=== PATIENT | male | born 1960 | race Caucasian/White ===

== ENCOUNTER 2016-06-05 11:18 | Emergency (ER) | payer BC, OTHER ==
[2016-06-05 11:29] VITALS: BP 151/90
--- NOTE | 2016-06-05 11:35 | EDM.PDOC ---
<Azul Love - Last Filed: 06/05/16 12:05> ED HPI LOWER BACK PAIN/INJURY - General Chief Complaint: Back Pain or Injury Stated Complaint: BACK Time Seen by Provider: 06/05/16 11:34 Source of Information: Reports: Patient History Limitations: Reports: No limitations - History of Present Illness INITIAL COMMENTS - FREE TEXT/NARRATIVE: Patient states on Wednesday he was getting out of his car and heard a "pop" in his back. He states since then he as had excruciating pain in the left lower back area radiating through the buttocks and down the left leg. He rates the pain a 10/10 at it's worst, and a 9/10 when he takes pressure off. Patient denies any recent illnesses, N/V, fever, chills, chest pain, sob. He is not a smoker. 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 [No Known Home Meds] 09/01/14 [History] Past Medical History - Past Health History Medical/Surgical History: Denies Medical/Surgical History Social & Family History - Tobacco Use Smoking Status *Q: Never Smoker Second Hand Smoke Exposure: No ED ROS GENERAL - Review of Systems Review Of Systems: ROS reveals no pertinent complaints other than HPI. ED EXAM,LOWER BACK PAIN/INJURY - Physical Exam Exam: See Below Exam Limited By: No limitations General Appearance: alert, WD/WN, no apparent distress Eye Exam: bilateral eye: normal inspection Ears: normal external exam, normal canal, hearing grossly normal Nose: normal inspection, normal mucosa, no blood Throat/Mouth: Normal inspection, Normal voice, No airway compromise Head: atraumatic, normocephalic Neck: normal inspection, full range of motion Respiratory/Chest: no respiratory distress, lungs clear, normal breath sounds, no accessory muscle use, chest non-tender Cardiovascular: normal peripheral pulses, regular rate, rhythm, no edema, no gallop, no JVD, no murmur, no rub GI/Abdominal: normal bowel sounds, soft, non tender, no organomegaly, no distention, no abnormal bruit, no mass (Male) Exam: Deferred Rectal (Males) Exam: Deferred Back Exam: normal inspection, other (tenderness on palpation to left lower lumbar region) Extremities: normal inspection Neurological: alert, normal mood/affect, no motor/sensory deficits, oriented x 3 Psychiatric: normal affect, normal mood Skin Exam: Warm, Dry, Intact, Normal color, No rash Lymphatic: no adenopathy Course - Vital Signs Last Recorded V/S: Last Vital Signs Temp 36.8 C 06/05/16 11:28 Pulse 74 06/05/16 11:28 Resp 16 06/05/16 11:28 BP 151/90 H 06/05/16 11:28 Pulse Ox 100 06/05/16 11:28 - Orders/Labs/Meds Orders: Active Orders 24 hr Category Date Time Status Lumbar Spine 2 or 3V [CR] Urgent Exams 06/05/16 11:33 Taken Meds: Medications Discontinued Medications Generic Name Dose Route Start Last Admin Trade Name Harryq PRN Reason Stop Dose Admin Ketorolac Tromethamine 60 mg 06/05/16 11:37 06/05/16 11:43 Toradol IM 06/05/16 11:38 60 mg ONETIME ONE Administration - Radiology Interpretation Free Text/Narrative:: Lumbar xray: Chronic degenerative changes. No acute fracture. See Rad report. Departure - Departure Time of Disposition: 12:06 Disposition: Home, Self-Care 01 Clinical Impression: Sciatica Qualifiers: Laterality: left Qualified Code(s): M54.32 - Sciatica, left side Lumbar sprain Qualifiers: Encounter type: initial encounter Qualified Code(s): S33.5XXA - Sprain of ligaments of lumbar spine, initial encounter Instructions: Back Injury Prevention, [id number], Muscle Strain, [id number] , Sciatica, [id number] Forms: ED Department Discharge Additional Instructions: Flexeril 10m orally three times daily as needed for 5 days for muscle spasms NO DRIVING WHILE TAKING THIS MED Decadron 4m orally every 6 hours for 6 doses. Return to your primary care provider next week if not improved in 1 week. <Heladio Patterson - Last Filed: 06/05/16 12:07> Course - Radiology Interpretation CT Results Date: 06/05/16 - Re-Assessments/Exams Free Text/Narrative Re-Assessment/Exam: 06/05/16 11:58 FOR THIS ENCOUNTER THE PATIENT WAS SEEN IN CONJUNCTION WITH [facility] STUDENT AZUL LOVE. ALL PATIENT CARE AND/OR PROCEDURE(S), DIAGNOSTIC ORDERS, MEDICATION(S) AND TREATMENT ORDERS, DISPOSITION ORDERS/PLANNING, AND DISCHARGE/FOLLOW UP INSTRUCTIONS WERE UNDER MY DIRECT SUPERVISION. gisselle
[2016-06-05] MEDS ORDERED: Ketorolac 30 MG/ML SDV IM ONE (11:37)
--- NOTE | 2016-06-05 13:13 | CR ---
Clinical history: 55-year-old male injury spine. 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 Homogeneous normal density and normal height/alignment of the 5 lumbar vertebra. No sign of patholog ic skeletal lesion, acute fracture or spondylolisthesis. Relative narrowing of the lowest free L5-S1 interspace suggesting possible disc disease. Marginal arthritic spondylosis present at nearly all levels lumbar spine. CONCLUSION: Arthritis and probable L5-S1 disc disease. No acute fracture or dislocation.
== END 2016-06-05 12:20 | disposition home or self-care (01) ==
LOC: DL.ED 11:18
DX: S33.5XXA Sprain of ligaments of lumbar spine, initial encounter (principal); M54.32 Sciatica, left side; Z88.0 Allergy status to penicillin; X58.XXXA Exposure to other specified factors, initial encounter; Y92.009 Unspecified place in unspecified non-institutional (private) residence as the place of occurrence of the external cause
CPT/HCPCS: 72100; 96372; 99283; J1885

== ENCOUNTER 2019-09-09 23:35 | Emergency (ER) | payer OTHER ==
[2019-09-09 23:42] VITALS: BP 148/89; PULSE 100
[2019-09-10 00:09] LABS: ANION GAP 17.5 mEq/L (7-13); CHLORIDE,CL 102 mmol/L (98-107); SODIUM,NA 140 mmol/L (136-145)
--- NOTE | 2019-09-10 00:13 | CT ---
PROCEDURE INFORMATION: Exam: CT Head Without Contrast Exam date and time: 09/09/2019 11:57 PM Age: 59 years old Clinical indication: Other: Altered mentation, ETOH; Additional info: Alteredmental, intox fall TECHNIQUE: Imaging protocol: Computed tomography of the head without contrast. Radiation optimization: All CT scans at this facility use at least one of these dose optimization techniques: automated exposure control; mA and/or kV adjustment per patient size (includes targeted exams where dose is matched to clinical indication); or iterative reconstruction. COMPARISON: CT Head wo Cont 10/17/2018 11:56 PM FINDINGS: Brain: The brain is stable in appearance. There is no intracranial hemorrhage. There is no acute edema, mass effect or shift of the normally midline structures. Diminished attenuation in the bilateral occipital lobes is likely artifactual. The pineda-white matter differentiation is preserved. There are no extra-axial fluid collections. Ventricles: The ventricles and sulci are dilated in keeping with early atrophy of the brain. Bones/joints: The calvarium is intact. There is a chronic nasal bone deformity. Sinuses: The paranasal sinuses are normally aerated. Mastoid air cells: The mastoid air cells and middle ear cavities are normally aerated. Soft tissues: There is soft tissue swelling along the right cheek. No scalp hematoma is identified. IMPRESSION: No evidence of acute skull fracture or intracranial hemorrhage.
--- NOTE | 2019-09-10 00:18 | CT ---
PROCEDURE INFORMATION: Exam: CT Cervical Spine Without Contrast Exam date and time: 09/09/2019 11:57 PM Age: 59 years old Clinical indication: Other: Fall/etoh; Additional info: Alteredmental, intox fall TECHNIQUE: Imaging protocol: Computed tomography images of the cervical spine without contrast. Radiation optimization: All CT scans at this facility use at least one of these dose optimization techniques: automated exposure control; mA and/or kV adjustment per patient size (includes targeted exams where dose is matched to clinical indication); or iterative reconstruction. COMPARISON: CT Cervical Spine wo Cont 10/17/2018 11:56 PM FINDINGS: Vertebrae: There is slight anterolisthesis of C2 upon C3, unchanged. There is mild reversal of the normal cervical lordosis. There is preservation of the vertebral body heights. No acute fracture is identified. 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 The dens is intact. The atlantoaxial articulation is preserved. There is facet joint arthropathy on the left at C2-C3 and C3-C4. Discs/Spinal canal/Neural foramina: There is moderate degenerative disc disease with disc space foreshortening, endplate sclerosis and proliferative osteophyte formation, most pronounced at the C5-C6 level. The central canal caliber is well maintained. There is neural foraminal stenosis which is moderate in degree on the left at C3-C4 the and on the right at C6-C7. Other bones/joints: The base of the skull is intact. The temporomandibular joints are normally articulated. Soft tissues: There are focal calcifications along the nuchal ligament, as before. No large soft tissue hematoma is identified. Lungs: The lung apices are clear. IMPRESSION: Stable CT appearance of the cervical spine. No acute fracture or malalignment identified.
--- NOTE | 2019-09-10 02:18 | EDM.PDOC ---
ED HPI GENERAL MEDICAL PROBLEM - General Chief Complaint: Drug or Alcohol Abuse Stated Complaint: AMBULANCE Time Seen by Provider: 09/09/19 23:35 Source of Information: Reports: Patient History Limitations: Reports: Intoxication - History of Present Illness INITIAL COMMENTS - FREE TEXT/NARRATIVE: ED via [facility] report patient stopped by PD for driving erratically, known hx of alcohol abuse. Brethalysed 194 but patient seemed to be more altered than breathalyzer indicated. On arrival patient reports needing to use bathroom, attmts to get out of cot during tranfer from ambulance cot to ED and topples over falling formward on to head. No loss of consciousness, No c/o neck pain, Patient denied any drug use, state he is just an alcoholic and drinking a lot tonight. Denies c/o pain to extremities. rubbing forehead. - Related Data Allergies Allergy/AdvReac Type Severity Reaction Status Date / Time Penicillins Allergy Cannot Verified 10/18/18 03:16 Remember Home Meds: Home Meds Magnesium Oxide 250 mg PO BIDM 7 Days #14 tablet 10/19/18 [Rx] Potassium Chloride [Klor-Con 10] 20 meq PO BID 7 Days #14 tab.er 10/19/18 [Rx] Past Medical History - Past Health History Medical/Surgical History: Denies Medical/Surgical History Social & Family History - Tobacco Use Smoking Status *Q: Never Smoker Second Hand Smoke Exposure: No - Caffeine Use Caffeine Use: Reports: Other Other Caffeine Use: unable to assess - Recreational Drug Use Recreational Drug Use: No ED ROS GENERAL - Review of Systems Review Of Systems: Comprehensive ROS is negative, except as noted in HPI. - Physical Exam Exam: See Below Exam Limited By: No Limitations General Appearance: Alert, Thin, Other (intoxicated) Eye Exam: Bilateral Eye: EOMI, Nystagmus (horizontal, ), PERRL (4 sluggish, horizontal ) Ears: Normal External Exam Nose: Normal Inspection Throat/Mouth: Normal Inspection Head Exam: Normocephalic, Facial Tenderness (mild upper forehead). No: Scalp Hematoma, Scalp Tenderness, Facial Ecchymosis, Facial Lacerations, Facial Swelling Neck: Normal Inspection, Full Range of Motion. No: Limited Range of Motion Respiratory/Chest: No Respiratory Distress, Lungs Clear, Normal Breath Sounds Cardiovascular: Normal Peripheral Pulses, Regular Rate, Rhythm GI/Abdominal: Normal Bowel Sounds, Soft Neuro Exam (Abbreviated): Alert, Oriented, Inattentive Back Exam: Normal Inspection Extremities: Normal Inspection Skin Exam: Warm, Dry, Intact, Normal Color Course - Vital Signs Last Recorded V/S: Last Vital Signs Temp 98.2 F 09/09/19 23:33 Pulse 100 09/09/19 23:33 Resp 18 09/09/19 23:33 BP 148/89 H 09/09/19 23:33 Pulse Ox 95 09/09/19 23:33 - Orders/Labs/Meds Labs: Laboratory Tests 09/09/19 09/09/19 09/09/19 Range/Units 23:45 23:45 23:47 WBC 9.4 (5.0-10.0) 10^3/uL RBC 4.93 (4.6-6.2) 10^6/uL Hgb 15.0 (14.0-18.0) g/dL Hct 43.7 (40.0-54.0) % MCV 88.6 (80-100) fL MCH 30.4 (27.0-34.0) pg MCHC 34.3 (33.0-35.0) g/dL Plt Count 239 (150-450) 10^3/uL Neut % (Auto) 63.7 (42.2-75.2) % Lymph % (Auto) 24.8 (20.5-50.1) % [place] % (Auto) 9.0 H (2-8) % Eos % (Auto) 1.5 (1.0-3.0) % Baso % (Auto) 1.0 (0.0-1.0) % Sodium 140 (136-145) mmol/L Potassium 3.5 (3.5-5.1) mmol/L Chloride 102 (98-107) mmol/L Carbon Dioxide 24 (21-32) mmol/L Anion Gap 17.5 H (7-13) mEq/L BUN 13 (7-18) mg/dL Creatinine 0.78 (0.70-1.30) mg/dL Est Cr Clr Drug Dosing TNP Estimated GFR (MDRD) > 60 BUN/Creatinine Ratio 16.7 (No establ ref range) Glucose 119 H (74-99) mg/dL Calcium 9.1 (8.5-10.1) mg/dL Total Bilirubin 0.2 (0.2-1.0) mg/dL AST 20 (15-37) U/L ALT 29 (16-63) U/L Alkaline Phosphatase 55 (46-116) U/L Total Protein 8.1 (6.4-8.2) g/dL Albumin 4.1 (3.4-5.0) g/dL Globulin 4.0 Albumin/Globulin Ratio 1.0 Urine Opiates Screen Negative (NEGATIVE) Ur Oxycodone Screen Negative (NEGATIVE) Urine Methadone Screen Negative (NEGATIVE) Ur Barbiturates Screen Negative (NEGATIVE) U Tricyclic Antidepress Negative (NEGATIVE) Ur Phencyclidine Scrn Negative (NEGATIVE) Ur Amphetamine Screen Negative (NEGATIVE) U Methamphetamines Scrn Negative (NEGATIVE) Urine MDMA Screen Negative (NEGATIVE) U Benzodiazepines Scrn Negative (NEGATIVE) Urine Cocaine Screen Negative (NEGATIVE) U Marijuana (THC) Screen Negative (NEGATIVE) Ethyl Alcohol 294 (0) mg/dL - Re-Assessments/Exams Free Text/Narrative Re-Assessment/Exam: 09/15/19 00:23 CT negative, few attempts to leave while waiting for results of lab ad imaging. Easily redirectable. Cooperative. Responses appropriate. Departure - Departure Time of Disposition: 02:16 Disposition: Home, Self-Care 01 Condition: Good Clinical Impression: Alcohol abuse, Intoxication Fall Qualifiers: Encounter type: initial encounter Qualified Code(s): W19.XXXA - Unspecified fall, initial encounter - Discharge Information *PRESCRIPTION DRUG MONITORING PROGRAM REVIEWED*: No *COPY OF PRESCRIPTION DRUG MONITORING REPORT IN PATIENT RAMA: No Instructions: Alcohol Use Disorder Referrals: PCP,Unobtain [Primary Care Provider] - Forms: ED Department Discharge Additional Instructions: decrease alcohol use consider addisction support services Sepsis Event Note (ED) - Evaluation Sepsis Screening Result: No Definite Risk
== END 2019-09-10 02:49 | disposition home or self-care (01) ==
LOC: DL.ED 23:35
DX: Z04.3 Encounter for examination and observation following other accident (principal); F10.129 Alcohol abuse with intoxication, unspecified; Y90.8 Blood alcohol level of 240 mg/100 ml or more; Z88.0 Allergy status to penicillin; Z79.899 Other long term (current) drug therapy
CPT/HCPCS: 36415; 70450; 72125; 80053; 80305-QW; 80307; 85025; 99284-25

== ENCOUNTER 2020-10-20 22:28 | Emergency (ER) | payer SELFPAY ==
[2020-10-20 22:45] VITALS: BP 157/88; PULSE 102
[2020-10-20] MEDS ORDERED: Sodium Chloride 0.9% 1,000 ML IV ONE (22:52)
--- NOTE | 2020-10-20 22:58 | EDM.PDOC ---
ED HPI GENERAL MEDICAL PROBLEM - General Chief Complaint: Skin Complaint Stated Complaint: AMBULANCE Time Seen by Provider: 10/20/20 22:57 Source of Information: Reports: Patient, RN History Limitations: Reports: No Limitations - History of Present Illness INITIAL COMMENTS - FREE TEXT/NARRATIVE: 60-year-old patient who was brought by EMS for an evaluation of a right ring finger laceration x2 days ago. Patient reports the hand got caught in the door and he has just not had time to come into the ER. He reports increased pain tonight, so he sought help from the ambulance to be transferred to the ER. He also admits he has been drinking for the past 2 weeks. He denies any other symptoms at this time. Patient is observed to be moving the finger with no difficulty. Neurovascular status intact. - Related Data Allergies Allergy/AdvReac Type Severity Reaction Status Date / Time Penicillins Allergy Cannot Verified 10/20/20 23:14 Remember Home Meds: Home Meds . [Unable to Verify Home Med List] 10/20/20 [History] Past Medical History - Past Health History Medical/Surgical History: Denies Medical/Surgical History Psychiatric History: Reports: Addiction Other Psychiatric History: Alcoholism Social & Family History - Family History Family Medical History: No Pertinent Family History - Tobacco Use Tobacco Use Status *Q: Never Tobacco User Second Hand Smoke Exposure: No - Caffeine Use Caffeine Use: Reports: Coffee, Soda Other Caffeine Use: unable to assess - Alcohol Use Days Per Week of Alcohol Use: 1 Number of Drinks Per Day: 0 Total Drinks Per Week: 0 Date of Last Drink: 10/20/20 Time of Last Drink: 06:00 - Recreational Drug Use Recreational Drug Use: No ED ROS GENERAL - Review of Systems Review Of Systems: Comprehensive ROS is negative, except as noted in HPI. ED EXAM, SKIN/RASH Exam: See Below Exam Limited By: Intoxication General Appearance: Alert, No Apparent Distress Eye Exam: Bilateral Eye: PERRL Ears: Normal External Exam, Normal Canal, Hearing Grossly Normal, Normal TMs Nose: Normal Inspection, Normal Mucosa, No Blood Throat/Mouth: Normal Inspection, Normal Oropharynx, Normal Voice, No Airway Compromise Head: Atraumatic Neck: Normal Inspection, Supple, Non-Tender Respiratory/Chest: No Respiratory Distress, Lungs Clear, Normal Breath Sounds, No Accessory Muscle Use, Chest Non-Tender Cardiovascular: Normal Peripheral Pulses, Regular Rate, Rhythm, No Edema, No Gallop, No JVD, No Murmur, No Rub GI/Abdominal: Normal Bowel Sounds, Soft, Non-Tender, No Organomegaly, No Distention, No Abnormal Bruit, No Mass (Male) Exam: Deferred Rectal (Males) Exam: Deferred Extremities: Other (About a 3cm x 2cm laceration noted on right ring finger with flap. Good range of motion noted.) Neurological: Alert Psychiatric: Normal Affect, Normal Mood Skin: Warm Location, Skin: Upper Extremity, Right Associated features: Warmth, Tenderness Lymphatic: No Adenopathy ED SKIN PROCEDURES - Laceration/Wound Repair Right Upper Digit - 4th (Ring) Appearance: Irregular Distal NVT: Neuro & Vascular Intact Skin Prep: Chlorhexidine (Hibiciens) Saline Irrigation (cc's): 20 Exploration/Debridement/Repair: Wound Explored, Other (skin flap cut off with a sterile scissors as it was unclean. Bleeding controlled with jones nitrate.) Suture Size: Other (3 cm x 2cm) Sterile Dressing Applied: Nurse Tetanus Status Addressed: Yes Complications: No Course - Vital Signs Last Recorded V/S: Last Vital Signs Temp 97.8 F 10/20/20 22:43 Pulse 102 H 10/20/20 22:43 Resp 18 10/20/20 22:43 BP 157/88 H 10/20/20 22:43 Pulse Ox 93 L 10/20/20 22:43 - Orders/Labs/Meds Labs: Laboratory Tests 10/20/20 10/20/20 10/20/20 Range/Units 23:00 23:00 23:07 WBC 12.1 H (5.0-10.0) 10^3/uL RBC 4.80 (4.6-6.2) 10^6/uL Hgb 14.9 (14.0-18.0) g/dL Hct 44.1 (40.0-54.0) % MCV 91.9 D (80-100) fL MCH 31.0 (27.0-34.0) pg MCHC 33.8 (33.0-35.0) g/dL Plt Count 287 (150-450) 10^3/uL Neut % (Auto) 65.9 (42.2-75.2) % Lymph % (Auto) 26.2 (20.5-50.1) % [place] % (Auto) 6.5 (2-8) % Eos % (Auto) 0.7 L (1.0-3.0) % Baso % (Auto) 0.7 (0.0-1.0) % Sodium 145 (136-145) mmol/L Potassium 3.2 L (3.5-5.1) mmol/L Chloride 103 (98-107) mmol/L Carbon Dioxide 26 (21-32) mmol/L Anion Gap 19.2 H (7-13) mEq/L BUN 13 (7-18) mg/dL Creatinine 0.91 (0.70-1.30) mg/dL Est Cr Clr Drug Dosing 87.40 mL/min Estimated GFR (MDRD) > 60 BUN/Creatinine Ratio 14.3 (No establ ref range) Glucose 100 H (70-99) mg/dL Calcium 8.8 (8.5-10.1) mg/dL Total Bilirubin 0.4 (0.2-1.0) mg/dL AST 27 (15-37) U/L ALT 34 (16-63) U/L Alkaline Phosphatase 72 (46-116) U/L Total Protein 7.8 (6.4-8.2) g/dL Albumin 3.9 (3.4-5.0) g/dL Globulin 3.9 Albumin/Globulin Ratio 1.0 Urine Opiates Screen Negative (NEGATIVE) Ur Oxycodone Screen Negative (NEGATIVE) Urine Methadone Screen Negative (NEGATIVE) Ur Barbiturates Screen Negative (NEGATIVE) U Tricyclic Antidepress Negative (NEGATIVE) Ur Phencyclidine Scrn Negative (NEGATIVE) Ur Amphetamine Screen Negative (NEGATIVE) U Methamphetamines Scrn Negative (NEGATIVE) Urine MDMA Screen Negative (NEGATIVE) U Benzodiazepines Scrn Negative (NEGATIVE) Urine Cocaine Screen Negative (NEGATIVE) U Marijuana (THC) Screen Positive H (NEGATIVE) Ethyl Alcohol 345 (0) mg/dL Meds: Medications Discontinued Medications Generic Name Dose Route Start Last Admin Trade Name Freq PRN Reason Stop Dose Admin Sodium Chloride 1,000 mls @ 999 mls/hr 10/20/20 22:52 10/20/20 23:03 Normal Saline IV 10/20/20 23:52 999 mls/hr .BOLUS ONE Administration Silver Nitrate 1 each 10/21/20 00:05 10/21/20 00:12 Silver Nitrate Applicator Each TOP 10/21/20 00:06 1 each ONETIME ONE Administration - Re-Assessments/Exams Free Text/Narrative Re-Assessment/Exam: Reviewed exam findings findings and lab results with patient. Laceration cleaned with dressing applied.IV fluids administered and TOSHIA was 345. Discussed transfer to alcohol detox and patient was in agreement. Patient transported by Law enforcement. Encouraged him to follow up with PCP for laceration on right ring finger. Departure - Departure Time of Disposition: 00:39 Disposition: Home, Self-Care 01 Condition: Fair Clinical Impression: Alcohol intoxication Qualifiers: Complication of substance-induced condition: uncomplicated Qualified Code(s): F10.920 - Alcohol use, unspecified with intoxication, uncomplicated Laceration of right ring finger Qualifiers: Encounter type: initial encounter Damage to nail status: unspecified Foreign body presence: without foreign body Qualified Code(s): S61.214A - Laceration without foreign body of right ring finger without damage to nail, initial encounter - Discharge Information Instructions: Alcohol Intoxication, [id number] Forms: ED Department Discharge Additional Instructions: Encouraged him to follow up with PCP for laceration on right ring finger. Sepsis Event Note (ED) - Evaluation Sepsis Screening Result: No Definite Risk - Focused Exam Vital Signs: Vital Signs Temp Pulse Resp BP Pulse Ox 10/20/20 22:43 97.8 F 102 H 18 157/88 H 93 L
[2020-10-20 23:29] LABS: ANION GAP 19.2 mEq/L (7-13); CHLORIDE,CL 103 mmol/L (98-107); SODIUM,NA 145 mmol/L (136-145)
[2020-10-20 23:30] LABS: AMPHETAMINES,URINE NEGATIVE (NEGATIVE); BARBITURATES,URINE NEGATIVE (NEGATIVE); BENZODIAZEPINE,URINE NEGATIVE (NEGATIVE); MDMA (ECSTASY), URINE NEGATIVE (NEGATIVE); METHADONE,URINE NEGATIVE (NEGATIVE); METHAMPHETAMINES,URINE NEGATIVE (NEGATIVE); OPIATES,URINE NEGATIVE (NEGATIVE); OXYCODONE,URINE NEGATIVE (NEGATIVE); PHENCYCLIDINE,URINE NEGATIVE (NEGATIVE); TCA,URINE NEGATIVE (NEGATIVE)
[2020-10-21] MEDS ORDERED: Silver Nitrate Applicator Each TOP ONE (00:05)
[2020-10-21] MEDS ORDERED: Bacitracin Oint 1 GM U/D Packet TOP ONE (00:45)
== END 2020-10-21 00:59 | disposition home or self-care (01) ==
LOC: DL.ED 22:28
DX: S61.215A Laceration without foreign body of left ring finger without damage to nail, initial encounter (principal); F10.129 Alcohol abuse with intoxication, unspecified; Y90.8 Blood alcohol level of 240 mg/100 ml or more; Z88.0 Allergy status to penicillin; W23.0XXA Caught, crushed, jammed, or pinched between moving objects, initial encounter
CPT/HCPCS: 12001; 12002; 36415; 80053; 80305-QW; 80307; 85025; 99283-25; J7030

== ENCOUNTER 2021-06-07 21:12 | Emergency (ER) | payer SELFPAY ==
[2021-06-07] MEDS ORDERED: Sodium Chloride 0.9% 10 ML Syringe FLUSH PRN (21:22)
[2021-06-07] MEDS ORDERED: MVI, Adult with Vitamin K 10 ML, Folic Acid 1 MG, Thiamine 100 MG in Lactated Ringers 1... IV ONE ×4 (21:23)
[2021-06-07 22:00] LABS: AMPHETAMINES,URINE NEGATIVE (NEGATIVE); BARBITURATES,URINE NEGATIVE (NEGATIVE); BENZODIAZEPINE,URINE NEGATIVE (NEGATIVE); MDMA (ECSTASY), URINE NEGATIVE (NEGATIVE); METHADONE,URINE NEGATIVE (NEGATIVE); METHAMPHETAMINES,URINE NEGATIVE (NEGATIVE); OPIATES,URINE NEGATIVE (NEGATIVE); OXYCODONE,URINE NEGATIVE (NEGATIVE); PHENCYCLIDINE,URINE NEGATIVE (NEGATIVE); TCA,URINE NEGATIVE (NEGATIVE)
[2021-06-07 22:07] LABS: ANION GAP 17.6 mEq/L (7-13); CHLORIDE,CL 105 mmol/L (98-107); ESTIMATED GFR > 60; SODIUM,NA 143 mmol/L (136-145)
[2021-06-08 04:09] VITALS: BP 108/73; PULSE 82
== END 2021-06-08 07:07 | disposition home or self-care (01) ==
LOC: DL.ED 21:12
DX: F10.129 Alcohol abuse with intoxication, unspecified (principal); S01.01XA Laceration without foreign body of scalp, initial encounter; Z88.0 Allergy status to penicillin; Y90.8 Blood alcohol level of 240 mg/100 ml or more
CPT/HCPCS: 36415; 70450; 80053; 80305-QW; 80307; 81001; 85025; 85610; 93010; 96365; 99283; 99285-25; J3411; J3490; J7120

== ENCOUNTER 2021-07-22 22:43 | Emergency (ER) | payer SELFPAY ==
[2021-07-22] MEDS ORDERED: MVI, Adult with Vitamin K 10 ML, Folic Acid 1 MG, Thiamine 100 MG in Lactated Ringers 1... IV ONE ×4 (23:27)
[2021-07-23 00:33] LABS: ANION GAP 16.1 mEq/L (7-13); CHLORIDE,CL 106 mmol/L (98-107); SODIUM,NA 144 mmol/L (136-145)
[2021-07-23 03:38] VITALS: BP 130/90; PULSE 70
== END 2021-07-23 02:48 | disposition home or self-care (01) ==
LOC: DL.ED 22:43
DX: S00.03XA Contusion of scalp, initial encounter (principal); S60.219A Contusion of unspecified wrist, initial encounter; F10.129 Alcohol abuse with intoxication, unspecified; Z88.0 Allergy status to penicillin; Y90.8 Blood alcohol level of 240 mg/100 ml or more; W18.30XA Fall on same level, unspecified, initial encounter
CPT/HCPCS: 36415; 70450; 80053; 80307; 85025; 85610; 96365; 99283; 99285-25; J3411; J3490; J7120

== ENCOUNTER 2021-08-08 11:34 | Emergency (ER) | payer SELFPAY ==
[2021-08-08 11:55] VITALS: BP 130/93; PULSE 97
[2021-08-08] MEDS ORDERED: Sodium Chloride 0.9% 10 ML Syringe FLUSH PRN (11:59)
[2021-08-08] MEDS ORDERED: MVI, Adult with Vitamin K 10 ML, Folic Acid 1 MG, Thiamine 100 MG in Lactated Ringers 1... IV ONE ×4 (12:00)
[2021-08-08 12:45] LABS: ANION GAP 16.9 mEq/L (7-13); CHLORIDE,CL 107 mmol/L (98-107); SODIUM,NA 146 mmol/L (136-145)
[2021-08-08] MEDS ORDERED: Sodium Chloride 0.9% 1,000 ML IV ONE (12:56)
[2021-08-08 13:59] LABS: CORONAVIRUS COVID-19 NAA NEGATIVE (NEGATIVE)
== END 2021-08-08 13:45 | disposition home or self-care (01) ==
LOC: DL.ED 11:34
DX: F10.129 Alcohol abuse with intoxication, unspecified (principal); Z88.0 Allergy status to penicillin; Y90.8 Blood alcohol level of 240 mg/100 ml or more; Z20.822 Contact with and (suspected) exposure to COVID-19
CPT/HCPCS: 0240U; 36415; 70450; 80053; 80307; 85025; 85610; 96365; 99283; 99284-25; J3411; J3490; J7120

== ENCOUNTER 2021-10-07 00:54 | Emergency (ER) | payer SELFPAY ==
[2021-10-07 00:45] VITALS: BP 162/96; PULSE 116
== END 2021-10-07 00:59 | disposition home or self-care (01) ==
LOC: DL.ED 00:54
DX: F10.120 Alcohol abuse with intoxication, uncomplicated (principal); Z88.0 Allergy status to penicillin; Z20.822 Contact with and (suspected) exposure to COVID-19
CPT/HCPCS: 99284; U0002

== ENCOUNTER 2021-10-24 14:44 | Emergency (ER) | payer SELFPAY ==
[2021-10-24 16:03] VITALS: BP 135/81; PULSE 93
== END 2021-10-24 15:57 | disposition home or self-care (01) ==
LOC: DL.ED 14:44
DX: F10.920 Alcohol use, unspecified with intoxication, uncomplicated (principal); Z88.0 Allergy status to penicillin
CPT/HCPCS: 99282; 99284

== ENCOUNTER 2022-11-06 15:33 | Emergency (ER) | payer MEDICAID ==
[2022-11-06] MEDS ORDERED: Sodium Chloride 0.9% 1,000 ML IV ONE ×2 (15:51→17:30)
[2022-11-06 15:57] LABS: EOSINOPHILS PERCENT AUTO 1.3 % (1.0-3.0); HEMATOCRIT 44.2 % (40.0-54.0); LYMPHOCYTES PERCENT AUTO 31.7 % (20.5-50.1); MEAN CORPUSCULAR HEMOGLOBIN 32.6 pg (27.0-34.0); MEAN CORPUSCULAR HGB CONC 33.9 g/dL (33.0-35.0); MEAN CORPUSCULAR VOLUME 96.1 fL (80-100); MONOCYTES PERCENT AUTO 13.8 % (2-8); NEUTROPHILS PERCENT AUTO 52.2 % (42.2-75.2); PLATELET COUNT,PLT 204 10^3/uL (150-450); WHITE BLOOD CELL COUNT,WBC 7.1 10^3/uL (5.0-10.0)
[2022-11-06 16:18] LABS: PROTHROMBIN TIME 9.9 SEC (9.0-12.0); PTT,PARTIAL THROMBOPLSTIN TIME 25.2 SEC (22.0-34.0)
[2022-11-06 16:19] LABS: A/G RATIO 0.7; ALBUMIN 3.4 g/dL (3.4-5.0); ANION GAP 18.7 mEq/L (7-13); BILIRUBIN TOTAL 0.3 mg/dL (0.2-1.0); BUN/CREATININE RATIO 15.9 (No establ ref range); CALCIUM 8.5 mg/dL (8.5-10.1); CREATININE 0.69 mg/dL (0.70-1.30); EST CRCL DRUG DOSING (CG) 108.77 mL/min; POTASSIUM,K 3.7 mmol/L (3.5-5.1)
[2022-11-06 17:17] LABS: APPEARANCE,URINE CLEAR (CLEAR); BILIRUBIN,URINE NEGATIVE (NEGATIVE); COLOR,URINE YELLOW (YELLOW); GLUCOSE,URINE NEGATIVE (NEGATIVE); KETONES,URINE NEGATIVE (NEGATIVE); LEUKOCYTE ESTERASE,URINE NEGATIVE (NEGATIVE); NITRITE,URINE NEGATIVE (NEGATIVE); OCCULT BLOOD,URINE TRACE-LYSED (NEGATIVE); PROTEIN,URINE NEGATIVE (NEGATIVE); UROBILINOGEN,URINE 0.2 mg/dL (0.2-1.0)
[2022-11-06 17:22] LABS: AMPHETAMINES,URINE NEGATIVE (NEGATIVE); BARBITURATES,URINE NEGATIVE (NEGATIVE); BENZODIAZEPINE,URINE NEGATIVE (NEGATIVE); MDMA (ECSTASY), URINE NEGATIVE (NEGATIVE); METHADONE,URINE NEGATIVE (NEGATIVE); METHAMPHETAMINES,URINE NEGATIVE (NEGATIVE); OPIATES,URINE NEGATIVE (NEGATIVE); OXYCODONE,URINE NEGATIVE (NEGATIVE); PHENCYCLIDINE,URINE NEGATIVE (NEGATIVE); TCA,URINE NEGATIVE (NEGATIVE)
[2022-11-06 17:25] LABS: AMORPHOUS SEDIMENT,URINE RARE /HPF (NOT SEEN); BACTERIA,URINE RARE /HPF (0-FEW/HPF); EPITHELIAL CELLS,URINE NOT SEEN /HPF (NOT SEEN); MUCUS,URINE RARE /LPF (NOT SEEN); RBC,URINE 0-5 /HPF (0-5); WBC,URINE 0-5 /HPF (0-5/HPF)
== END 2022-11-06 22:30 | disposition home or self-care (01) ==
LOC: MERGE 15:33 → DL.ED 15:33
DX: F10.129 Alcohol abuse with intoxication, unspecified (principal); Y90.8 Blood alcohol level of 240 mg/100 ml or more; Z88.0 Allergy status to penicillin
CPT/HCPCS: 36415; 70450; 72125; 80053; 80305-QW; 80307; 81001; 83735; 85025; 85610; 85730; 99284; 99285; J7030

== ENCOUNTER 2022-11-12 19:35 | Emergency (ER) | payer MEDICAID ==
[2022-11-12] MEDS: Sodium Chloride 0.9% 10 ML Syringe FLUSH PRN ×2 (19:28→19:36)
[2022-11-12 19:34] LABS: BASOPHILS PERCENT AUTO 0.7 % (0.0-1.0); EOSINOPHILS PERCENT AUTO 0.8 % (1.0-3.0); HEMATOCRIT 45.8 % (40.0-54.0); HEMOGLOBIN 15.8 g/dL (14.0-18.0); LYMPHOCYTES PERCENT AUTO 27.3 % (20.5-50.1); MEAN CORPUSCULAR HEMOGLOBIN 32.4 pg (27.0-34.0); MEAN CORPUSCULAR HGB CONC 34.5 g/dL (33.0-35.0); MEAN CORPUSCULAR VOLUME 93.9 fL (80-100); MONOCYTES PERCENT AUTO 10.4 % (2-8); NEUTROPHILS PERCENT AUTO 60.8 % (42.2-75.2); PLATELET COUNT,PLT 272 10^3/uL (150-450); RED BLOOD CELL COUNT 4.88 10^6/uL (4.6-6.2); WHITE BLOOD CELL COUNT,WBC 8.4 10^3/uL (5.0-10.0)
[~2022-11-12 19:35] MED LIST: LORazepam 2 MG/ML SDV IVPUSH ONE
[2022-11-12 19:52] LABS: A/G RATIO 0.8; ALANINE AMINOTRANSFERASE,ALT 24 U/L (16-63); ALBUMIN 3.7 g/dL (3.4-5.0); ALKALINE PHOSPHATASE 109 U/L (46-116); ANION GAP 16.4 mEq/L (7-13); ASPARTATE AMNIOTRANSFERASE,AST 32 U/L (15-37); BILIRUBIN TOTAL 0.4 mg/dL (0.2-1.0); BLOOD UREA NITROGEN,BUN 13 mg/dL (7-18); BUN/CREATININE RATIO 16.2 (No establ ref range); CALCIUM 9.1 mg/dL (8.5-10.1); CARBON DIOXIDE,CO2 26 mmol/L (21-32); CHLORIDE,CL 105 mmol/L (98-107); GLUCOSE RANDOM 123 mg/dL (70-99); MAGNESIUM 2.2 mg/dL (1.8-2.4); POTASSIUM,K 3.4 mmol/L (3.5-5.1); PROTEIN TOTAL,TP 8.3 g/dL (6.4-8.2); SODIUM,NA 144 mmol/L (136-145)
[2022-11-12 19:57] LABS: ESTIMATED GFR 101 mL/min (>=60); ETHANOL BLOOD MEDICAL 392 mg/dL (0)
[2022-11-12 20:06] LABS: AMPHETAMINES,URINE NEGATIVE (NEGATIVE); BARBITURATES,URINE NEGATIVE (NEGATIVE); BENZODIAZEPINE,URINE NEGATIVE (NEGATIVE); MDMA (ECSTASY), URINE NEGATIVE (NEGATIVE); METHADONE,URINE NEGATIVE (NEGATIVE); METHAMPHETAMINES,URINE NEGATIVE (NEGATIVE); OPIATES,URINE NEGATIVE (NEGATIVE); OXYCODONE,URINE NEGATIVE (NEGATIVE); PHENCYCLIDINE,URINE NEGATIVE (NEGATIVE); TCA,URINE NEGATIVE (NEGATIVE)
[2022-11-12] MEDS ORDERED: MVI, Adult with Vitamin K 10 ML, Folic Acid 1 MG, Thiamine 100 MG in Lactated Ringers 1... IV ONE ×4 (20:13)
== END 2022-11-13 06:53 | disposition home or self-care (01) ==
LOC: DL.ED 19:35
DX: S01.01XA Laceration without foreign body of scalp, initial encounter (principal); F10.920 Alcohol use, unspecified with intoxication, uncomplicated; E87.6 Hypokalemia; Z88.0 Allergy status to penicillin; W17.89XA Other fall from one level to another, initial encounter
CPT/HCPCS: 12001; 36415; 70450; 72125; 80053; 80305; 80307; 83735; 85025; 93005; 93010; 96365; 96375; 99284; J2060; J3411; J7120; J3490

== ENCOUNTER 2025-01-27 22:55 | Emergency (ER) | payer MEDICAID ==
[2025-01-27] MEDS ORDERED: Sodium Chloride 0.9% 10 ML Syringe FLUSH PRN (23:06)
[2025-01-27 23:26] LABS: BASOPHILS PERCENT AUTO 0.7 % (0.0-1.0); EOSINOPHILS PERCENT AUTO 0.7 % (1.0-3.0); LYMPHOCYTES PERCENT AUTO 21.0 % (20.5-50.1); MONOCYTES PERCENT AUTO 4.2 % (2-8); NEUTROPHILS PERCENT AUTO 73.4 % (42.2-75.2); PLATELET COUNT,PLT 224 10^3/uL (150-450); RED BLOOD CELL COUNT 4.53 10^6/uL (4.6-6.2); WHITE BLOOD CELL COUNT,WBC 7.4 10^3/uL (5.0-10.0)
[2025-01-27 23:35] LABS: A/G RATIO 1.3; ALANINE AMINOTRANSFERASE,ALT 20.0 U/L (16-63); ASPARTATE AMNIOTRANSFERASE,AST 14.0 U/L (15-37); BILIRUBIN TOTAL 0.2 mg/dL (0.2-1.0); BLOOD UREA NITROGEN,BUN 17.0 mg/dL (7-18); CARBON DIOXIDE,CO2 24.0 mmol/L (21-32); CHLORIDE,CL 106.0 mmol/L (98-107); CREATININE 0.82 mg/dL (0.70-1.30); EST CRCL DRUG DOSING (CG) 89.21 mL/min; ETHANOL BLOOD MEDICAL 239.0 mg/dL (0); GLUCOSE RANDOM 138.0 mg/dL (70-99); POTASSIUM,K 3.4 mmol/L (3.5-5.1); PROTEIN TOTAL,TP 7.5 g/dL (6.4-8.2); SODIUM,NA 143.0 mmol/L (136-145)
[2025-01-27] MEDS: Diphtheria,Pertussis(Acell),Tetanus Vaccine 0.5 ML Syringe IM ONE (23:36)
[2025-01-27 23:39] LABS: ESTIMATED GFR 99.0 mL/min (>=60)
[2025-01-27 23:49] LABS: AMPHETAMINES,URINE NEGATIVE (NEGATIVE); BARBITURATES,URINE NEGATIVE (NEGATIVE); MDMA (ECSTASY), URINE NEGATIVE (NEGATIVE); METHAMPHETAMINES,URINE NEGATIVE (NEGATIVE); OPIATES,URINE NEGATIVE (NEGATIVE); OXYCODONE,URINE NEGATIVE (NEGATIVE); PHENCYCLIDINE,URINE NEGATIVE (NEGATIVE); TCA,URINE NEGATIVE (NEGATIVE)
[2025-01-27] MEDS: Lidocaine 1% with EPINEPHrine 1:100,000 20 ML MDV INJECT ONE (23:52)
== END 2025-01-28 02:11 | disposition home or self-care (01) ==
LOC: DL.ED 22:55
DX: S01.01XA Laceration without foreign body of scalp, initial encounter (principal); F10.120 Alcohol abuse with intoxication, uncomplicated; E87.6 Hypokalemia; Z23 Encounter for immunization; Z88.0 Allergy status to penicillin; Y92.009 Unspecified place in unspecified non-institutional (private) residence as the place of occurrence of the external cause; Y90.9 Presence of alcohol in blood, level not specified
CPT/HCPCS: 12002; 36415; 70450; 80053; 80305-QW; 80307; 83735; 85025; 90471; 90715; 99284; 99285-25; J2004